=== PATIENT | male | born 1990 | race Hispanic/Latino ===

== ENCOUNTER 2017-05-06 20:06 | Emergency (ER) | payer BC, SELFPAY | END 2017-05-06 20:45 | disposition home or self-care (01) | LOC: NAV ERS 20:06 | DX: R07.2 Precordial pain (principal); I10 Essential (primary) hypertension; I25.2 Old myocardial infarction | CPT/HCPCS: 93005 ==

== ENCOUNTER 2017-05-18 11:58 | Emergency (ER) | payer SELFPAY ==
[2017-05-18] MEDS ORDERED: Ibuprofen 800 MG TAB ONE (13:38)
[2017-05-18] MEDS ORDERED: Benzonatate 100 MG CAP ONE (13:38)
== END 2017-05-18 15:18 | disposition home or self-care (01) ==
LOC: NAV ERS 11:58
DX: B34.9 Viral infection, unspecified (principal); I10 Essential (primary) hypertension
CPT/HCPCS: 87081; 87430; 99283

== ENCOUNTER 2017-09-13 16:58 | Emergency (ER) | payer SELFPAY | END 2017-09-13 17:29 | disposition home or self-care (01) | LOC: NAV ERS 16:58 | DX: B86 Scabies (principal); I10 Essential (primary) hypertension; E66.9 Obesity, unspecified | CPT/HCPCS: 99283 ==

== ENCOUNTER 2019-01-28 19:41 | Emergency (ER) | payer BC, SELFPAY ==
[2019-01-28 20:26] LABS: #Basophils 0.1 thou/uL (0.0-0.2); #Eosinphils 0.1 thou/uL (0.0-0.7); #Lymphocytes 2.5 thou/uL (1.20-3.40); #Monocytes 0.9 thou/uL (0.11-0.59); %Lymphocytes 19.7 % (21.0-51.0); %Neutrophils 71.2 % (42.0-75.0); Hemoglobin 15.3 g/dL (14.0-18.0); Mean Corpuscular HGB CONC 32.7 g/dL (32.0-36.0); Mean Corpuscular Hemoglobin 27.8 pg (27.0-31.0); Mean Corpuscular Volume 84.9 fL (78.0-98.0); Platelet Count 220 thou/uL (130-400); RBC Distribution Width 12.5 % (11.5-14.5); White Blood Cell (WBC) Count 12.7 thou/uL (4.8-10.8)
--- NOTE | 2019-01-28 20:30 | RAD ---
RADIOGRAPH CHEST 1 VIEW: DATE: 01/28/2019 HISTORY: 28-year-old male with chest pain FINDINGS: There are no airspace densities, pulmonary edema, pneumothorax, or cardiomegaly. The lateral costophr enic angles are sharp. IMPRESSION: No acute cardiopulmonary findings.
[2019-01-28] MEDS ORDERED: Ketorolac Tromethamine 60 MG/2 ML VIAL ONE (20:36)
[2019-01-28 20:38] LABS: Anion Gap 18 mmol/L (10-20); BUN (Urea Nitrogen) 18 mg/dL (8.9-20.6); Calc. Creatinine Clearance 0 mL/min (70-130); Carbon Dioxide 23 mmol/L (22-29); Chloride 101 mmol/L (98-107); Estimated GFR-MDRD 77; Glucose 106 mg/dL (70-105); Potassium 3.6 mmol/L (3.5-5.1); Sodium 138 mmol/L (136-145)
== END 2019-01-28 20:55 | disposition home or self-care (01) ==
LOC: NAV ERS 19:41
DX: R07.89 Other chest pain (principal); I10 Essential (primary) hypertension; E66.01 Morbid (severe) obesity due to excess calories; Z79.899 Other long term (current) drug therapy
CPT/HCPCS: 71045; 80048; 84484; 85025; 93005; 96372; J1885

== ENCOUNTER 2019-02-17 22:52 | Emergency (ER) | payer BC ==
[2019-02-17 23:44] LABS: #Basophils 0.1 thou/uL (0.0-0.2); #Eosinphils 0.2 thou/uL (0.0-0.7); #Lymphocytes 3.2 thou/uL (1.20-3.40); #Monocytes 0.7 thou/uL (0.11-0.59); #Neutrophils 6.5 thou/uL (1.40-6.50); %Eosinophils 1.6 % (0.0-10.0); %Monocytes 6.8 % (0.0-10.0); %Neutrophils 60.5 % (42.0-75.0); Hemoglobin 15.5 g/dL (14.0-18.0); Mean Corpuscular Hemoglobin 27.6 pg (27.0-31.0); Mean Corpuscular Volume 83.7 fL (78.0-98.0); Mean Platelet Volume 10.1 fL (7.4-10.4); Platelet Count 263 thou/uL (130-400); RBC Distribution Width 11.8 % (11.5-14.5); White Blood Cell (WBC) Count 10.7 thou/uL (4.8-10.8)
--- NOTE | 2019-02-17 23:59 | RAD ---
RADIOGRAPH CHEST 1 VIEW: DATE: 02/17/2019 HISTORY: 28-year-old male with dyspnea FINDINGS: There are no airspace densities, pulmonary edema, pneumothorax, or cardiomegaly. The lateral costophr enic angles are sharp. IMPRESSION: No acute cardiopulmonary findings.
[2019-02-18 00:05] LABS: ALT (SGPT) 42 U/L (8-55); AST (SGOT) 25 U/L (5-34); Albumin 4.4 g/dL (3.5-5.0); Alkaline Phosphatase 96 U/L (40-110); Anion Gap 17 mmol/L (10-20); BUN (Urea Nitrogen) 16 mg/dL (8.9-20.6); Bilirubin, Total 1.2 mg/dL (0.2-1.2); Calc. Creatinine Clearance 0 mL/min (70-130); Calcium 9.4 mg/dL (7.8-10.44); Carbon Dioxide 26 mmol/L (22-29); Chloride 99 mmol/L (98-107); Estimated GFR-MDRD 70; Glucose 102 mg/dL (70-105); Potassium 3.1 mmol/L (3.5-5.1); Protein, Total 7.4 g/dL (6.0-8.3); Sodium 139 mmol/L (136-145)
== END 2019-02-18 01:01 | disposition home or self-care (01) ==
LOC: NAV ERS 22:52
DX: J06.9 Acute upper respiratory infection, unspecified (principal); E78.5 Hyperlipidemia, unspecified; E78.00 Pure hypercholesterolemia, unspecified; I10 Essential (primary) hypertension; E66.9 Obesity, unspecified; J45.909 Unspecified asthma, uncomplicated; Z79.899 Other long term (current) drug therapy
CPT/HCPCS: 36415; 71045; 80053; 83880; 84484; 85025; 93005; 94640; J7620

== ENCOUNTER 2019-11-11 06:27 | Emergency (ER) | payer BC, OTHER ==
[2019-11-11] MEDS ORDERED: Ondansetron ODT 4 MG TAB ONE (07:11)
[2019-11-12 12:09] LABS: SARS-CoV-2 MS2 Positive; SARS-CoV-2 N Gene Negative; SARS-CoV-2 S Gene Negative; SARS-CoV-2 orf1ab Negative
== END 2019-11-11 07:52 | disposition home or self-care (01) ==
LOC: NAV ERS 06:27
DX: R19.7 Diarrhea, unspecified (principal); R51 Headache; R11.0 Nausea; Z20.828 Contact with and (suspected) exposure to other viral communicable diseases; E78.5 Hyperlipidemia, unspecified; E78.00 Pure hypercholesterolemia, unspecified; I10 Essential (primary) hypertension; E66.9 Obesity, unspecified; J45.909 Unspecified asthma, uncomplicated; Z87.891 Personal history of nicotine dependence
CPT/HCPCS: 87635; 99284; Q0162; U0003

== ENCOUNTER 2019-12-31 17:13 | Emergency (ER) | payer BC, OTHER ==
[2019-12-31] MEDS ORDERED: Ibuprofen 200 MG TAB ONE (18:22)
[2020-01-02 12:24] LABS: SARS-CoV-2 MS2 Positive; SARS-CoV-2 N Gene Negative; SARS-CoV-2 S Gene Negative; SARS-CoV-2 by NAA Not Detected (NotDetected); SARS-CoV-2 orf1ab Negative
== END 2019-12-31 18:45 | disposition home or self-care (01) ==
LOC: NAV ERS 17:13
DX: J32.8 Other chronic sinusitis (principal); R50.9 Fever, unspecified; Z20.828 Contact with and (suspected) exposure to other viral communicable diseases; R09.81 Nasal congestion; I10 Essential (primary) hypertension; E78.5 Hyperlipidemia, unspecified; J45.909 Unspecified asthma, uncomplicated; Z79.899 Other long term (current) drug therapy
CPT/HCPCS: 87635; 99284; U0003